=== PATIENT | female | born 2000 | race Caucasian/White ===

== ENCOUNTER 2024-05-08 09:13 | Emergency (ER) | payer OTHER ==
[2024-05-08 10:37] LABS: BASOPHILS ABSOLUTE AUTO 0.03 10^3/uL (0.00-0.10); BASOPHILS PERCENT AUTO 0.6 % (0.0-1.0); EOSINOPHILS ABSOLUTE AUTO 0.38 10^3/uL (0.10-0.30); EOSINOPHILS PERCENT AUTO 7.1 % (1.0-3.0); HEMATOCRIT 46.6 % (37.0-47.0); HEMOGLOBIN 15.4 g/dL (12.0-16.0); IMMATURE GRAN ABSOLUTE AUTO 0.01 10^3/uL (0.00-0.04); IMMATURE GRAN PERCENT AUTO 0.2 % (0.0-0.4); LYMPHOCYTES ABSOLUTE AUTO 1.85 10^3/uL (1.00-4.00); LYMPHOCYTES PERCENT AUTO 34.6 % (20.0-40.0); MEAN CORPUSCULAR HEMOGLOBIN 28.1 pg (27.0-31.0); MEAN PLATELET VOLUME 11.8 fL (7.4-10.4); MONOCYTES ABSOLUTE AUTO 0.37 10^3/uL (0.10-0.80); MONOCYTES PERCENT AUTO 6.9 % (2.0-8.0); NEUTROPHILS PERCENT AUTO 50.6 % (50.0-70.0); PLATELET COUNT,PLT 231 10^3/uL (150-400); RED BLOOD CELL COUNT 5.48 10^6/uL (3.80-5.50); RED CELL DISTRIBUTION WIDTH 13.5 % (11.5-14.5); WHITE BLOOD CELL COUNT,WBC 5.34 10^3/uL (5.00-10.00)
[2024-05-08 10:58] LABS: ALBUMIN 4.02 g/dL (3.40-5.00); ANION GAP 17.4 mmol/L (5-15); BILIRUBIN TOTAL 0.3 mg/dL (0.2-1.0); CALCIUM 9.8 mg/dL (8.7-10.3); CARBON DIOXIDE,CO2 25.8 mmol/L (21.0-32.0); CREATININE 0.68 mg/dL (0.51-1.17); EST CRCL DRUG DOSING (CG) 122.99 mL/min; POTASSIUM,K 4.2 mmol/L (3.5-5.1); PROTEIN TOTAL,TP 8.1 g/dL (6.4-8.2)
[2024-05-08] MEDS: Iopamidol 755 Mg/ML 100 ML Bottle IV ONE (11:00)
[2024-05-08] MEDS: Sodium Chloride 0.9% 50 ML IV SCH (11:39)
== END 2024-05-08 13:20 | disposition other institution (70) ==
LOC: KA.ED 09:13
DX: H00.11 Chalazion right upper eyelid (principal)
CPT/HCPCS: 36415; 70481; 80053; 81025; 85025; 99284; J3490; Q3014; Q9967